=== PATIENT | female | born 1980 | race Hispanic/Latino ===

== ENCOUNTER → 2024-12-01 | Day surgery (SDC) | payer OTHER ==
[~2024-12-01] MED LIST: LIDOCAINE HCL 2% LOCAL INJ 5 ML SDV VIAL INJ ONE; PROPOFOL IV EMULSION 10 MG/ML 20 ML VIAL ONE; PROPOFOL IV EMULSION 50 ML IV ONE
[2024-12-01] MEDS: LACTATED RINGER'S 1,000 ML ONE (07:35)
[2024-12-01 08:04] VITALS: TEMP 97.3
[2024-12-01 08:15] VITALS: BP 107/67; PULSE 55; RESP 14; O2SAT 99
== END | disposition home or self-care (01) ==
LOC: OR 05:53
PROVIDERS: ATTEND Internal Medicine Gastroenterology
DX: Z15.09 Genetic susceptibility to other malignant neoplasm (principal); K64.8 Other hemorrhoids; D64.9 Anemia, unspecified; Z79.85 Long-term (current) use of injectable non-insulin antidiabetic drugs
CPT/HCPCS: 45378; 81025; J2003; J2704 ×2; J7121